=== PATIENT | male | born 1985 | race Caucasian/White ===

== ENCOUNTER 2020-12-19 09:41 | Emergency (ER) | payer SELFPAY ==
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
[2020-12-19] MEDS ORDERED: diphenhydrAMINE 50 MG/ML SDV IVPUSH ONE (10:23)
[2020-12-19] MEDS ORDERED: Ondansetron 4 MG/2 ML SDV IVPUSH ONE (10:23)
[2020-12-19] MEDS ORDERED: Sodium Chloride 0.9% 1,000 ML IV ONE ×2 (10:23→14:20)
--- NOTE | 2020-12-19 11:40 | CT ---
Head CT Technique: Multiple axial sections through the brain were obtained. Intravenous contrast was not utilized. Reconstructed coronal and sagittal images were obtained. Comparison: No prior intracranial imaging is available. Findings: Ventricles along with basal cisterns and sulci over the convexities are within normal limits for the patient's age. No abnormal parenchymal densities are seen. No evidence of intracranial hemorrhage. No midline shift or mass-effect is seen. Bone window settings were reviewed. Rounded density is noted within the right maxillary sinus measuring 1.2 cm which is compatible with retention cyst. No acute paranasal sinus findings are seen. Visualized mastoid sinuses show nothing acute. No acute calvarial abnormality is appreciated. Impression: 1. Small retention cyst within the right maxillary sinus. 2. Nothing acute is seen on noncontrast head CT study. Diagnostic code #2
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
[2020-12-19] MEDS: Sodium Chloride 0.9% 1,000 ML ONE ×2 (13:21→15:57)
[2020-12-19] MEDS ORDERED: Insulin NPH/Insulin Regular,Human 70-30 100 Units/ML 10 ML Vial SUBCUT SCH (16:00)
== END 2020-12-19 15:25 | disposition home or self-care (01) ==
LOC: JD.ED 09:41
DX: G44.209 Tension-type headache, unspecified, not intractable (principal); E10.9 Type 1 diabetes mellitus without complications; I10 Essential (primary) hypertension; Z87.891 Personal history of nicotine dependence
CPT/HCPCS: 36415; 70450; 80053; 82009; 82947; 84484; 85025; 93005; 96374; 96375; 99284; J1200; J1815; J2405; J3360; J7030; 93010

== ENCOUNTER 2021-09-18 11:44 | Emergency (ER) | payer SELFPAY ==
[2021-09-18] MEDS ORDERED: Acetaminophen 325 MG Tab PO ONE (12:39)
[2021-09-18] MEDS ORDERED: Sodium Chloride 0.9% 1,000 ML IV SCH (12:45)
[2021-09-18] MEDS ORDERED: Ondansetron 4 MG/2 ML SDV IVPUSH ONE (12:47)
[2021-09-18] MEDS ORDERED: Ketorolac 30 MG/ML SDV IVPUSH SCH (14:45)
[2021-09-18] MEDS ORDERED: Lactated Ringers 1,000 ML IV ONE (14:57)
== END 2021-09-18 17:45 | disposition home or self-care (01) ==
LOC: JD.ED 11:44
DX: J18.9 Pneumonia, unspecified organism (principal); E10.9 Type 1 diabetes mellitus without complications; Z20.822 Contact with and (suspected) exposure to COVID-19
CPT/HCPCS: 36415; 71045; 80053; 81001; 83605; 85025; 87635; 87804; 96374; 96375; 99284; A9270; J1885; J2405; J7030; J7120; U0002

== ENCOUNTER 2021-09-23 08:32 | Emergency (ER) | payer SELFPAY ==
[2021-09-23] MEDS ORDERED: Sodium Chloride 0.9% 10 ML Syringe FLUSH PRN (09:01)
[2021-09-23] MEDS ORDERED: Ondansetron 4 MG/2 ML SDV IVPUSH ONE (09:01)
[2021-09-23] MEDS ORDERED: HYDROmorphone 0.5 MG/0.5 ML Syringe IVPUSH ONE (09:03)
[2021-09-23] MEDS ORDERED: Sodium Chloride 0.9% 1,000 ML IV SCH (09:15)
[2021-09-23] MEDS ORDERED: Alum Hydrox/Mag Hydrox/Simeth 30 ML, Lidocaine 2% 15 ML PO ONE ×2 (10:50)
[2021-09-23] MEDS ORDERED: Sodium Chloride 0.9% 1,000 ML IV ONE (10:50)
[2021-09-23] MEDS ORDERED: Metoclopramide 10 MG/2 ML SDV IVPUSH ONE (12:52)
== END 2021-09-23 16:15 | disposition home or self-care (01) ==
LOC: JD.ED 08:32
DX: U07.1 COVID-19 (principal); N19 Unspecified kidney failure; R11.2 Nausea with vomiting, unspecified; I10 Essential (primary) hypertension; E10.9 Type 1 diabetes mellitus without complications; E66.9 Obesity, unspecified; Z68.41 Body mass index [BMI] 40.0-44.9, adult
CPT/HCPCS: 36415; 71045; 80053; 81001; 83690; 85025; 85379; 86140; 96374; 96375; 99284; A9270; J1170; J2405; J2765; J7030